=== PATIENT | female | born 1955 | race Caucasian/White ===

== ENCOUNTER 2018-06-07 10:06 | Outpatient (CLI) | payer OTHER ==
--- NOTE | 2018-06-08 09:23 | Mammography Report ---
Reason: SCREENING MAMMO Procedure Date: 06/07/2018 Accession Number: [id number] / [id number] Procedure: LOBITO - Screening Mammo w/Cristian CPT Code: FULL RESULT: EXAM: Screening Mammo w/Cristian DATE: 06/07/2018 10:47 AM CLINICAL HISTORY: Screening encounter. History of late childbearing. TECHNIQUE: Bilateral CC, laterally exaggerated CC, MLO views were obtained. COMPARISON: 06/22/2017 through 05/14/2014. FINDINGS: The breasts demonstrate scattered fibroglandular densities bilaterally. Biopsy clip is again seen in the right breast. No suspicious masses, clustered microcalcifications, or regions of architectural distortion are identified. IMPRESSION: Benign findings RECOMMENDATION: Routine annual screening unless otherwise clinically indicated. BIRADS CATEGORY 2: Benign findings STANDARD QUALIFYING STATEMENTS: 1. This examination was not reviewed with the aid of Computer-Aided Detection (CAD). 2. A negative or benign imaging report should not preclude biopsy if clinically suspicious findings are present. 3. Dense breasts may obscure an underlying neoplasm. 4. This examination was reviewed with the aid of 3D breast imaging (tomosynthesis).
== END 2018-06-07 10:07 | disposition home or self-care (01) ==
LOC: DI 10:06
DX: Z12.31 Encounter for screening mammogram for malignant neoplasm of breast (principal)
CPT/HCPCS: 77063; 77067

== ENCOUNTER 2018-10-04 16:12 | Outpatient (CLI) | payer OTHER ==
--- NOTE | 2018-10-05 08:33 | DEXA Report ---
Reason: OSTEOPOROSIS Procedure Date: 10/04/2018 Accession Number: [id number] / [id number] Procedure: DEX - Dexa Spine and/or Hip CPT Code: FULL RESULT: EXAM: Dexa Spine and/or Hip DATE: 10/04/2018 4:41 PM CLINICAL HISTORY: OSTEOPOROSIS TECHNIQUE: Dual energy x-ray absorptiometry (DXA) was performed on a [employer] System. Regions measured are the AP Spine, femoral neck, and if needed forearm. COMPARISON: None. In accordance with the International Society for Clinical Densitometry (ISCD) guidelines, data from previous exams may be reanalyzed using current recommendations and techniques. This is done to allow a more accurate basis for comparison with the current study. FINDINGS: The data for the lumbar spine is as follows: BMD (g/cm/cm) T-SCORE Z-SCORE REGION L1 0.856 -2.3 -0.1 L2 0.967 -1.9 0.3 L3 1.019 -1.5 0.7 L4 0.973 -1.9 0.3 TOTAL 0.961 -1.8 0.4 NOTE: All evaluable vertebrae are used for classification The data for the hip is as follows: BMD (g/cm/cm) T-SCORE Z-SCORE REGION Neck 0.671 -2.6 -0.8 TOTAL 0.690 -2.5 -0.9 NOTE: The femoral neck or total proximal femur, whichever is lowest, is used for classification. IMPRESSION: THE WHO CLASSIFICATION BASED ON THE INTERNATIONAL REFERENCE STANDARD IS OSTEOPOROSIS. THE FRACTURE RISK IS HIGH. RECOMMENDATION: Patients with diagnosis of osteoporosis or osteopenia should have regular bone mineral density assessment. For those eligible for Medicare, routine testing is allowed once every 2 years. Testing frequency can be increased for patients who have rapidly progressing disease or for those who are receiving medical therapy to restore bone mass. COMMENT: World Health Organization (WHO) definitions for osteoporosis and osteopenia: NORMAL BMD: T-score at -1.0 or higher, fracture risk is low OSTEOPENIA BMD: T-score between -1.0 and -2.5, fracture risk is increased. OSTEOPOROSIS BMD: T-score at -2.5 or lower, fracture risk is high. National Osteoporosis Foundation recommends: 1. Obtain adequate dietary calcium (at least 1200 mg per day) and vitamin D (400-800 international units per day). 2. Participate, as appropriate, in regular weightbearing and muscle-strengthening exercise. 3. Avoid tobacco use and reduce alcohol and caffeine intake. 4. For more detailed information see the website at www.NOF.org.
== END 2018-10-04 16:13 | disposition home or self-care (01) ==
LOC: DI 16:12
PROVIDERS: ATTEND Nurse Practitioner Family
DX: M81.0 Age-related osteoporosis without current pathological fracture (principal)
CPT/HCPCS: 77080

== ENCOUNTER 2018-10-07 08:49 | Outpatient (CLI) | payer OTHER ==
[2018-10-07 10:24] LABS: BASOPHILS % (AUTO) 0.6 %; EOSINOPHILS # (AUTO) 0.2 10^3/uL (0.0-0.7); EOSINOPHILS % (AUTO) 3.6 %; HGB - HEMOGLOBIN 13.4 g/dL (12.0-16.0); LYMPHOCYTES # (AUTO) 1.3 10^3/uL (1.5-3.5); LYMPHOCYTES % (AUTO) 30.7 %; MEAN CORPUSCULAR HEMOGLOBIN 29.4 pg (27.0-31.0); MEAN CORPUSCULAR HGB CONC 33.1 g/dL (32.0-36.0); MEAN PLATELET VOLUME 8.4 fL (7.9-10.8); MONOCYTES # (AUTO) 0.4 10^3/uL (0.0-1.0); MONOCYTES % (AUTO) 9.2 %; NEUTROPHILS # (AUTO) 2.4 10^3/uL (1.5-6.6); NEUTROPHILS % (AUTO) 55.9 %; PLT - PLATELET COUNT 224 10^3/uL (130-450); RED BLOOD COUNT 4.55 10^6/uL (4.20-5.40); RED CELL DISTRIBUTION WIDTH 13.8 % (12.0-15.0); WHITE BLOOD COUNT 4.2 x10^3/uL (4.8-10.8)
[2018-10-07 10:59] LABS: HB2 TOTAL 13.6 g/dL; HEMOGLOBIN A1C 0.46 g/dL; HEMOGLOBIN A1C % 5.2 % (4.6-6.2)
[2018-10-07 17:41] LABS: ALBUMIN 4.3 g/dL (3.2-5.5); ALBUMIN/GLOBULIN RATIO 1.9 (1.0-2.2); ALKALINE PHOSPHATASE 46 IU/L (42-121); ALT ALANINE AMINOTRANSFERASE 16 IU/L (10-60); AST ASPARTATE AMINOTRANSFERASE 22 IU/L (10-42); BILIRUBIN,TOTAL 0.8 mg/dL (0.2-1.0); BUN - BLOOD UREA NITROGEN 16 mg/dL (6-20); CALCIUM 9.4 mg/dL (8.5-10.3); CARBON DIOXIDE - CO2 28 mmol/L (21-32); CHLORIDE 105 mmol/L (101-111); CREATININE 0.8 mg/dL (0.4-1.0); GFR - MDRD 73 (>89); GLUCOSE 96 mg/dL (70-100); SODIUM 139 mmol/L (135-145); TOTAL PROTEIN 6.6 g/dL (6.7-8.2); VLDL CHOLESTEROL 14 mg/dL
[2018-10-07 17:42] LABS: CHOL/HDL RATIO 3.2 (<4.4); CHOLESTEROL 230 mg/dL; HDL CHOLESTEROL 72 mg/dL; LDL CHOLESTEROL,CALCULATED 144 mg/dL
== END 2018-10-07 08:50 | disposition home or self-care (01) ==
LOC: LAB.F 08:49
PROVIDERS: ATTEND Nurse Practitioner Family
DX: Z13.220 Encounter for screening for lipoid disorders (principal); M81.0 Age-related osteoporosis without current pathological fracture; Z13.1 Encounter for screening for diabetes mellitus; E03.9 Hypothyroidism, unspecified
CPT/HCPCS: 36415; 80053; 80061; 82306; 83036; 83721; 84443; 85025

== ENCOUNTER 2019-07-11 12:20 | Outpatient (CLI) | payer OTHER ==
--- NOTE | 2019-07-19 08:29 | Mammography Report ---
Reason: SCREENING MAMMO Procedure Date: 07/11/2019 Accession Number: [id number] / [id number] Procedure: LOBITO - Screening Mammo w/Cristian CPT Code: Final Report FULL RESULT: EXAM: Screening Mammo w/Cristian DATE: 07/11/2019 12:46 PM CLINICAL HISTORY: Screening encounter. History of late childbearing. History of benign right breast biopsy. TECHNIQUE: (B) - Bilateral CC and MLO views were obtained. COMPARISON: 06/07/2018 through 05/10/2013. PARENCHYMAL PATTERN: (D) - The breast(s) demonstrate(s) heterogeneously dense fibroglandular parenchyma. FINDINGS: Postbiopsy changes including clip placement in the right breast are redemonstrated without change. There are no suspicious masses, calcifications, or areas of distortion. IMPRESSION: Benign findings. BI-RADS category 2. RECOMMENDATION: (ANNUAL) - Recommend routine annual screening mammography. BI-RADS CATEGORY: (2) - Benign Findings. STANDARD QUALIFYING STATEMENTS: 1. This examination was not reviewed with the aid of Computer-Aided Detection (CAD). 2. A negative or benign imaging report should not preclude biopsy if clinically suspicious findings are present. 3. Dense breasts may obscure an underlying neoplasm. 4. This examination was reviewed with the aid of 3D breast imaging (tomosynthesis).
== END 2019-07-11 12:21 | disposition home or self-care (01) ==
LOC: DI 12:20
DX: Z12.31 Encounter for screening mammogram for malignant neoplasm of breast (principal)
CPT/HCPCS: 77063; 77067

== ENCOUNTER 2020-05-07 11:57 | Outpatient (CLI) | payer OTHER | END 2020-05-07 11:58 | disposition home or self-care (01) | LOC: COV 11:57 | PROVIDERS: ATTEND Family Medicine | DX: R05 Cough (principal); R09.81 Nasal congestion; J34.89 Other specified disorders of nose and nasal sinuses; Z20.828 Contact with and (suspected) exposure to other viral communicable diseases ==

== ENCOUNTER 2020-06-20 12:00 | Outpatient (CLI) | payer OTHER ==
[2020-06-20 15:04] LABS: BASOPHILS % (AUTO) 0.6 %; EOSINOPHILS # (AUTO) 0.1 10^3/uL (0.0-0.7); EOSINOPHILS % (AUTO) 1.9 %; HGB - HEMOGLOBIN 13.3 g/dL (12.0-16.0); LYMPHOCYTES # (AUTO) 1.5 10^3/uL (1.5-3.5); LYMPHOCYTES % (AUTO) 27.4 %; MEAN CORPUSCULAR HEMOGLOBIN 30.2 pg (27.0-31.0); MEAN CORPUSCULAR HGB CONC 32.7 g/dL (32.0-36.0); MEAN CORPUSCULAR VOLUME 92.3 fL (81.0-99.0); MEAN PLATELET VOLUME 11.2 fL (7.9-10.8); MONOCYTES # (AUTO) 0.5 10^3/uL (0.0-1.0); MONOCYTES % (AUTO) 9.8 %; NEUTROPHILS # (AUTO) 3.2 10^3/uL (1.5-6.6); NEUTROPHILS % (AUTO) 60.1 %; PLT - PLATELET COUNT 232 10^3/uL (130-450); RED BLOOD COUNT 4.41 10^6/uL (4.20-5.40); WHITE BLOOD COUNT 5.3 x10^3/uL (4.8-10.8)
[2020-06-20 15:43] LABS: ALBUMIN 4.1 g/dL (3.2-5.5); ALKALINE PHOSPHATASE 41 IU/L (42-121); ALT ALANINE AMINOTRANSFERASE 17 IU/L (10-60); AST ASPARTATE AMINOTRANSFERASE 17 IU/L (10-42); BILIRUBIN,TOTAL 0.3 mg/dL (0.2-1.0); BUN - BLOOD UREA NITROGEN 12 mg/dL (6-20); CALCIUM 9.5 mg/dL (8.5-10.3); CARBON DIOXIDE - CO2 26 mmol/L (21-32); CHLORIDE 100 mmol/L (101-111); CHOL/HDL RATIO 3.6 (<4.4); CHOLESTEROL 228 mg/dL; CREATININE 0.7 mg/dL (0.4-1.0); GLUCOSE 93 mg/dL (70-100); HDL CHOLESTEROL 63 mg/dL; LDL CHOLESTEROL,CALCULATED 108 mg/dL; LDL/HDL RATIO 1.7 (<4.4); TOTAL PROTEIN 6.2 g/dL (6.7-8.2); VLDL CHOLESTEROL 57 mg/dL
== END 2020-06-20 12:01 | disposition home or self-care (01) ==
LOC: LAB.S 12:00
PROVIDERS: ATTEND Registered Nurse
DX: E78.5 Hyperlipidemia, unspecified (principal); E03.9 Hypothyroidism, unspecified; F32.9 Major depressive disorder, single episode, unspecified; F41.9 Anxiety disorder, unspecified; Z79.890 Hormone replacement therapy
CPT/HCPCS: 36415; 80053; 80061; 83721; 84443; 85025

== ENCOUNTER 2020-07-24 15:29 | Outpatient (CLI) | payer OTHER ==
--- NOTE | 2020-07-25 10:15 | Mammography Report ---
BILATERAL DIGITAL SCREENING MAMMOGRAM 3D/2D: 07/24/2020 CLINICAL: Routine screening. Comparison is made to exams dated: 07/11/2019 mammogram, 06/07/2018 mammogram - [facility], and 06/22/2017 mammogram - [facility]. There are scattered fibroglandular elements in both breasts. There is a biopsy clip in the right breast. No significant masses, calcifications, or other findings are seen in either breast. There has been no significant interval change. IMPRESSION: NEGATIVE There is no mammographic evidence of malignancy. A 1 year screening mammogram is recommended. This exam was interpreted at Station ID: [id number]. NOTE: For mammograms, a report in lay terms will be sent to the patient. Approximately 15% of breast malignancies will not be visualized mammographically. In the management of a palpable breast mass, a negative mammogram must not discourage biopsy of a clinically suspicious lesion. Electronically Signed By: Ofelia santana/penrad:07/24/2020 17:26:18 ACR BI-RADS Category 1: Negative 3341F PARENCHYMAL PATTERN: (A) - The breast(s) demonstrate(s) scattered fibroglandular densities. BI-RADS CATEGORY: (1) - 1 RECOMMENDATION: (ANNUAL) - Recommend routine annual screening mammography. [id number] 1 year screening LATERALITY: (B)
== END 2020-07-24 15:30 | disposition home or self-care (01) ==
LOC: DI 15:29
DX: Z12.31 Encounter for screening mammogram for malignant neoplasm of breast (principal)

== ENCOUNTER 2020-11-22 11:00 | Outpatient (CLI) | payer MEDICARE, BC ==
--- NOTE | 2020-11-22 16:58 | DEXA Report ---
PROCEDURE: Dexa Spine and/or Hip INDICATIONS: OSTEOPOROSIS TECHNIQUE: Dual energy x-ray absorptiometry (DXA) was performed on a [employer] System. Regions measur ed are the AP Spine, femoral neck, and if needed forearm. COMPARISON: None. FINDINGS: Lumbar Spine: Bone Mineral Density 1.032 g/cm/cm,T score -1.2, compared to -1.8 Left Hip: Bone Mineral Density 0.710 g/cm/cm,T score -2.4, compared to -2.5 Left Femoral Neck: Bone Mineral Density 0.671 g/cm/cm, T score -2.6, compared to -2.6 (T score greater or equal to -1.0: NORMAL) (T score from -1.1 to -2.4: OSTEOPENIA) (T score less than or equal to -2.5 to: OSTEOPOROSIS) Impression: 1. Improved bone mineral density within the lumbar spine, now minimal osteopenia. 2. Persistent borderline/minimal osteoporosis in the left hip and femoral neck. Patients with diagnosis of osteoporosis or osteopenia should have regular bone mineral density assess ment. For those eligible for Medicare, routine testing is allowed once every 2 years. Testing frequ ency can be increased for patients who have rapidly progressing disease or for those who are receivin g medical therapy to restore bone mass. Reviewed by: Flaquita Lucero MD on 11/22/2020 4:56 PM PDT Approved by: Flaquita Lucero MD on 11/22/2020 4:56 PM PDT Station ID: [id number]
== END 2020-11-22 11:01 | disposition home or self-care (01) ==
LOC: DI 11:00
PROVIDERS: ATTEND Internal Medicine Endocrinology, Diabetes & Metabolism
DX: M81.0 Age-related osteoporosis without current pathological fracture (principal)

== ENCOUNTER 2021-10-20 13:03 | Emergency (ER) | payer MEDICARE, BC ==
[2021-10-20 13:20] VITALS: BP 126/56
--- NOTE | 2021-10-20 13:59 | ED Physician Documentation ---
PD HPI SKIN - Stated complaint Stated Complaint: RASH - Chief complaint Chief Complaint: Wound - History obtained from History obtained from: Patient - History of Present Illness Timing - onset: How many weeks ago (4) Timing - duration: Weeks (4) Timing - details: Gradual onset, Still present Location: [place] Quality / character: Itchy Improved by: Benadryl Contributing factors: Other (exposed to scabies) Similar symptoms before: Has not had sx before Recently seen: Not recently seen - Additional information Additional information: Previously well 65-year-old Almita Nicholas has developed an itchy rash about a month ago. She has a daughter who has been dealing with scabies for more than a year. She has come up with a number of concoctions for treatment of this and has shared these with her mother and the patient states that she has not had any relief of her symptoms with this. She brings in a sheet of paper demonstrating what she has taken and she brings in the medications with her. These medications were apparently compounded and purchased over the Internet. She also taken some ivermectin 2 doses. She is not had resolution of her symptoms. 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 - Present Medications Home Medications: Ambulatory Orders Medication Instructions Recorded Confirmed Aspirin [Strum Aspirin] 81 mg PO DAILY 01/24/21 05/08/21 Cetirizine [ZyrTEC] 10 mg PO DAILY 01/24/21 05/08/21 Cholecalciferol (Vitamin D3) 50 mcg PO DAILY 01/24/21 05/08/21 [Vitamin D3] Cyanocobalamin (Vitamin B-12) 1,000 mcg PO DAILY 01/24/21 05/08/21 [Vitamin B-12] Denosumab [Prolia] 60 mg INJ ONCE 01/24/21 05/08/21 Levothyroxine Sodium [Synthroid] 75 mcg PO DAILY 01/24/21 05/08/21 buPROPion HCL [Bupropion Xl] 300 mg PO DAILY 01/24/21 05/08/21 traZODone [Desyrel] 50 - 75 mg PO DAILY PM 01/24/21 05/08/21 Permethrin 5% Cream [Permethrin 30 gm TOP ONCE #60 gm 10/20/21 Cream] - Allergies Allergies/Adverse Reactions: Allergies Allergy/AdvReac Type Severity Reaction Status Date / Time alendronate sodium AdvReac Unknown Verified 10/20/21 13:20 [From Fosamax] - Social History Smoking Status: Never smoker PD ED PE NORMAL - Vitals Vital signs reviewed: Yes (normal ) - General General: Alert and oriented X 3, No acute distress, Well developed/nourished - HEENT HEENT: Atraumatic, PERRL, EOMI - Respiratory Respiratory: No respiratory distress - Derm Derm: Normal color, Warm and dry, Other (Raised erythematous rash over the anterior chest between the fingers along the neck consistent with scabies) Results - Vitals Vitals: Vital Signs - 24 hr 10/20/21 13:15 Temperature 36.5 C Heart Rate 99 Respiratory 14 Rate Blood Pressure 126/56 L O2 Saturation 90 L Oxygen O2 Source Room air PD MEDICAL DECISION MAKING - ED course Complexity details: considered differential, d/w patient ED course: 65-year-old female who has tried some Internet remedies for scabies has not had success. We will prescribe some permethrin. Departure - Departure Disposition: 01 Home, Self Care Clinical Impression: Scabies Condition: Stable Instructions: ED Scabies Follow-Up: Jennifer Cazares ARNP [Primary Care Provider] - [facility] [Provider Group] Prescriptions: Permethrin 5% Cream [Permethrin Cream] 30 gm TOP ONCE #60 gm Comments: Almita, today it looks like you have scabies and the medications you have been using have been ineffective. Today I have written a prescription for 5% permethrin cream to be applied neck down, leave it on overnight, shower in the morning and repeat this 1 week. Instructions regarding treatment of scabies are provided and your medication has been e-scribed to [facility] in [place]. If you do not have success with this follow up with [facility]. Discharge Date/Time: 10/20/21 14:26
--- OUTSIDE RECORDS SUMMARY | 2021-10-20 14:12 | EXTERNAL MEDICAL SUMMARY RPT | Continuity of Care Document ---
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 Encounters No information. Medications No information. 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
== END 2021-10-20 14:26 | disposition home or self-care (01) ==
LOC: ED 13:03
DX: B86 Scabies (principal)
CPT/HCPCS: 99282; 99283

== ENCOUNTER 2022-02-09 13:08 | Outpatient (CLI) | payer BC, MEDICARE ==
--- NOTE | 2022-02-11 12:50 | Mammography Report ---
BILATERAL DIGITAL SCREENING MAMMOGRAM 3D/2D WITH EXAGGERATED CC: 02/09/2022 CLINICAL: Routine screening. Family history of breast cancer. Comparison is made to exams dated: 07/24/2020 mammogram, 07/11/2019 mammogram, 06/07/2018 mammogram - [facility], and 06/22/2017 mammogram - [facility]. Both breasts are heterogeneously dense, which may obscure small masses (category c / 51-75% glandula r tissue). There is a new 0.7 cm irregular low density focal asymmetry with an obscured margin in the left breas t at 11 o'clock anterior depth. There is possible architectural distortion associated with the focal asymmetry. No other significant masses, calcifications, or other findings are seen in either breast. IMPRESSION: INCOMPLETE: NEEDS ADDITIONAL IMAGING EVALUATION The new 0.7 cm irregular low density focal asymmetry in the left breast is indeterminate. Additional views with possible ultrasound are recommended. Based on the Tyrer Cuzick model (a risk assessment model) the patients lifetime risk is 10.8% and he r 10 year risk is 5.4%. According to the ACR, ACS, and NCCN guidelines, an annual breast MRI exam timbo ng with mammogram is recommended if the patients lifetime risk is 20% or greater. This exam was interpreted at Station ID: [id number]. NOTE: For mammograms, a report in lay terms will be sent to the patient. Approximately 15% of breast malignancies will not be visualized mammographically. In the management of a palpable breast mass, a negative mammogram must not discourage biopsy of a clinically suspicious lesion. Electronically Signed By: Lucien Renteria M.D. aty/:02/11/2022 09:05:38 ACR BI-RADS Category 0: Incomplete 3340F PARENCHYMAL PATTERN: (D) - The breast(s) demonstrate(s) heterogeneously dense fibroglandular parenchy ma. BI-RADS CATEGORY: (0) - 0 Mammo and [place] [id number] Immediate follow-up LATERALITY: (L)
== END 2022-02-09 13:09 | disposition home or self-care (01) ==
LOC: DI.S 13:08
PROVIDERS: ATTEND Registered Nurse
DX: Z12.31 Encounter for screening mammogram for malignant neoplasm of breast (principal); Z80.3 Family history of malignant neoplasm of breast; R92.8 Other abnormal and inconclusive findings on diagnostic imaging of breast

== ENCOUNTER 2022-02-26 09:14 | Outpatient (CLI) | payer MEDICARE ==
--- NOTE | 2022-02-27 11:29 | Ultrasound Report ---
LIMITED ULTRASOUND OF LEFT BREAST: 02/26/2022 CLINICAL: Patient returns today to evaluate an architectural distortion in the left breast. Patient r eturns today to evaluate a focal asymmetry in the left breast. No prior exams were available for comparison. Color flow ultrasound of the left breast 11 o'clock region was performed. Doran scale images of the real-time examination were reviewed. No significant abnormalities were seen sonographically in the left breast. IMPRESSION: NEGATIVE There is no sonographic evidence of malignancy. There is no abnormality seen in the left breast to correspond with the mammography finding at 11 o'cl ock which likely represents normal fibroglandular tissue. Return to annual mammogram screening schedule is recommended. This exam was interpreted at Station ID: [id number]. Electronically Signed By: Tye Aldana M.D. lc/:02/26/2022 10:42:00 Ultrasound BI-RADS: 1 Negative BI-RADS CATEGORY: (1) - 1 Mammogram [id number] return to screening LATERALITY: (B)
--- NOTE | 2022-02-27 11:29 | Mammography Report ---
UNILATERAL LEFT DIGITAL DIAGNOSTIC MAMMOGRAM 3D/2D: 02/26/2022 CLINICAL: Patient returns today to evaluate a focal asymmetry in the left breast. Comparison is made to exams dated: 02/09/2022 mammogram, 07/11/2019 mammogram, 07/24/2020 mammogram, 06/07/2018 mammogram - [facility], and 06/22/2017 mammogram - [facility]. The left breast is heterogeneously dense, which may obscure small masses (category c / 51-75% glandu lar tissue). There is a focal asymmetry in the left breast at 11 o'clock anterior depth, less prominent on spot co mpression views. No other significant masses or calcifications are seen in the breast. IMPRESSION: INCOMPLETE: NEEDS ADDITIONAL IMAGING EVALUATION The focal asymmetry in the left breast is indeterminate. Additional views with possible ultrasound a re recommended. This appears less prominent on spot compression views. Based on the Tyrer Cuzick model (a risk assessment model) the patients lifetime risk is 10.8% and he r 10 year risk is 5.4%. According to the ACR, ACS, and NCCN guidelines, an annual breast MRI exam timbo ng with mammogram is recommended if the patients lifetime risk is 20% or greater. This exam was interpreted at Station ID: [id number]. NOTE: For mammograms, a report in lay terms will be sent to the patient. Approximately 15% of breast malignancies will not be visualized mammographically. In the management of a palpable breast mass, a negative mammogram must not discourage biopsy of a clinically suspicious lesion. Electronically Signed By: Tye Aldana M.D. lc/:02/26/2022 10:40:31 ACR BI-RADS Category 0: Incomplete 3340F PARENCHYMAL PATTERN: (D) - The breast(s) demonstrate(s) heterogeneously dense fibroglandular parenchy ma. BI-RADS CATEGORY: (0) - 0 Ultrasound [id number] Immediate follow-up LATERALITY: (B)
== END 2022-02-26 09:15 | disposition home or self-care (01) ==
LOC: DI 09:14
PROVIDERS: ATTEND Family Medicine
DX: R92.8 Other abnormal and inconclusive findings on diagnostic imaging of breast (principal)

== ENCOUNTER 2022-06-22 16:59 | Outpatient (CLI) | payer MEDICARE ==
--- NOTE | 2022-06-22 18:20 | XRAY Report ---
PROCEDURE: Lumbar Spine 2 View INDICATIONS: LUMBAR RADICULOPATHY TECHNIQUE: 3 views of the lumbar spine were acquired. COMPARISON: 12/29/2019 FINDINGS: Bones: 5 [id number] vertebrae are present. Moderate S-shaped thoracolumbar scoliosis with the apex at the L2 level. There is mild lateral rightward subluxation L3 on 4 and asymmetric disc height loss L4-5. Probable retrolisthesis L2-3. This is not well seen due to scoliosis. Chronic vertebral body height loss of L1, stable compared to the prior study. No new vertebral body f ractures.. No suspicious bony lesions. Soft tissues: Overlying bowel gas pattern is normal. No suspicious soft tissue calcifications. IMPRESSION: 1. No significant change to moderate thoracolumbar scoliosis and mild L2-3 retrolisthesis. 2. No progression of L1 compression fracture. Reviewed by: Ofeila Starkey MD on 06/22/2022 5:19 PM AKST Approved by: Ofelia Starkey MD on 06/22/2022 5:19 PM AK Station ID: [id number]
== END 2022-06-22 17:00 | disposition home or self-care (01) ==
LOC: DI.S 16:59
PROVIDERS: ATTEND Physician Assistant
DX: M43.16 Spondylolisthesis, lumbar region (principal); M54.16 Radiculopathy, lumbar region

== ENCOUNTER 2022-12-15 08:56 | Outpatient (CLI) | payer MEDICARE ==
[2022-12-15 15:01] LABS: BASOPHILS % (AUTO) 0.4 %; EOSINOPHILS # (AUTO) 0.1 10^3/uL (0.0-0.7); EOSINOPHILS % (AUTO) 1.3 %; HCT - HEMATOCRIT 41.7 % (37.0-47.0); HGB - HEMOGLOBIN 13.6 g/dL (12.0-16.0); LYMPHOCYTES # (AUTO) 1.2 10^3/uL (1.5-3.5); MEAN CORPUSCULAR HEMOGLOBIN 30.1 pg (27.0-31.0); MEAN CORPUSCULAR HGB CONC 32.6 g/dL (32.0-36.0); MEAN CORPUSCULAR VOLUME 92.3 fL (81.0-99.0); MEAN PLATELET VOLUME 10.3 fL (7.9-10.8); MONOCYTES # (AUTO) 0.4 10^3/uL (0.0-1.0); MONOCYTES % (AUTO) 8.5 %; NEUTROPHILS % (AUTO) 63.8 %; PLT - PLATELET COUNT 282 10^3/uL (130-450); RED BLOOD COUNT 4.52 10^6/uL (4.20-5.40); RED CELL DISTRIBUTION WIDTH 12.7 % (12.0-15.0); WHITE BLOOD COUNT 4.7 x10^3/uL (4.8-10.8)
[2022-12-15 15:24] LABS: THYROID STIMULATING HORMONE 1.72 uIU/mL (0.34-5.60)
[2022-12-15 15:53] LABS: ALBUMIN 4.2 g/dL (3.2-5.5); ALBUMIN/GLOBULIN RATIO 1.6 (1.0-2.2); ALKALINE PHOSPHATASE 44 IU/L (42-121); ALT ALANINE AMINOTRANSFERASE 22 IU/L (10-60); AST ASPARTATE AMINOTRANSFERASE 23 IU/L (10-42); BILIRUBIN,TOTAL 0.5 mg/dL (0.2-1.0); BUN - BLOOD UREA NITROGEN 12 mg/dL (6-20); CALCIUM 9.4 mg/dL (8.5-10.3); CARBON DIOXIDE - CO2 29 mmol/L (21-32); CHLORIDE 106 mmol/L (101-111); CHOL/HDL RATIO 2.8 (<4.4); CHOLESTEROL 220 mg/dL; CREATININE 0.7 mg/dL (0.4-1.0); GFR - MDRD 83 (>89); GLUCOSE 103 mg/dL (70-100); HDL CHOLESTEROL 78 mg/dL; LDL CHOLESTEROL,CALCULATED 122 mg/dL; LDL/HDL RATIO 1.6 (<4.4); POTASSIUM 4.2 mmol/L (3.5-5.0); SODIUM 139 mmol/L (135-145); TOTAL PROTEIN 6.9 g/dL (6.7-8.2); TRIGLYCERIDES 99 mg/dL; VLDL CHOLESTEROL 20 mg/dL
== END 2022-12-15 08:57 | disposition home or self-care (01) ==
LOC: LAB.S 08:56
PROVIDERS: ATTEND Internal Medicine Endocrinology, Diabetes & Metabolism
DX: M81.0 Age-related osteoporosis without current pathological fracture (principal); Z79.899 Other long term (current) drug therapy; E78.5 Hyperlipidemia, unspecified; E03.9 Hypothyroidism, unspecified; E78.1 Pure hyperglyceridemia
CPT/HCPCS: 36415; 80053; 80061; 82310; 83721; 84443; 85025

== ENCOUNTER 2023-02-10 13:31 | Outpatient (CLI) | payer MEDICARE ==
--- NOTE | 2023-02-10 15:59 | Ultrasound Report ---
PROCEDURE: Pelvic Limited or F/U INDICATIONS: RIGHT INGUINAL PAIN, right lower quadrant pain for months TECHNIQUE: Real-time transabdominal scanning was performed of the pelvic organs, with image documentation. COMPARISON: None. Findings and impression: No hernia, fluid collection, or mass in the area of interest. Multiple bowel loops are visualized, ot herwise not well evaluated on ultrasound. Reviewed by: Tye Aldana MD on 02/10/2023 3:58 PM PDT Approved by: Tye Aldana MD on 02/10/2023 3:58 PM PDT Station ID: [id number]
== END 2023-02-10 13:32 | disposition home or self-care (01) ==
LOC: DI 13:31
PROVIDERS: ATTEND Registered Nurse
DX: R10.31 Right lower quadrant pain (principal)

== ENCOUNTER 2023-03-03 12:57 | Outpatient (CLI) | payer MEDICARE ==
--- NOTE | 2023-03-04 11:18 | Mammography Report ---
BILATERAL DIGITAL SCREENING MAMMOGRAM 3D/2D: 03/03/2023 Comparison is made to exams dated: 07/11/2019 mammogram, 07/24/2020 mammogram, 02/09/2022 mammogram, an d 02/26/2022 mammogram - [facility]. Both breasts are heterogeneously dense, which may obscure small masses (category c / 51-75% glandular tissue). No significant masses, calcifications, or other findings are seen in either breast. There has been no significant interval change. IMPRESSION: NEGATIVE There is no mammographic evidence of malignancy. A 1 year screening mammogram is recommended. Based on the Tyrer Cuzick model (a risk assessment model) the patients lifetime risk is 10.2% and he r 10 year risk is 5.4%. According to the ACR, ACS, and NCCN guidelines, an annual breast MRI exam timbo ng with mammogram is recommended if the patients lifetime risk is 20% or greater. This exam was interpreted at Station ID: [id number]. NOTE: For mammograms, a report in lay terms will be sent to the patient. Approximately 15% of breast malignancies will not be visualized mammographically. In the management of a palpable breast mass, a negative mammogram must not discourage biopsy of a clinically suspicious lesion. Electronically Signed By: Raj lacey/stephen:03/03/2023 17:41:55 letter sent: No_Letter ACR BI-RADS Category 1: Negative 3341F PARENCHYMAL PATTERN: (D) - The breast(s) demonstrate(s) heterogeneously dense fibroglandular geraldo angel. BI-RADS CATEGORY: (1) - 1 Mammogram [id number] 1 year screening LATERALITY: (B)
== END 2023-03-03 12:58 | disposition home or self-care (01) ==
LOC: DI.S 12:57
PROVIDERS: ATTEND Registered Nurse
DX: Z12.31 Encounter for screening mammogram for malignant neoplasm of breast (principal)

== ENCOUNTER 2023-04-20 10:24 | Outpatient (CLI) | payer MEDICARE ==
--- NOTE | 2023-04-20 12:06 | MRI Report ---
PROCEDURE: LUMBAR SPINE WO INDICATIONS: LUMBAR DISC HERNIATION. Back pain. TECHNIQUE: Noncontrast sagittal T1 spin echo and T2 fast echo, sagittal STIR, axial T1 and T2 fast spin echo thr ough the lumbar spine. In cases with scoliosis, additional coronal T2 fast spin echo may be performe d. COMPARISON: Lumbar spine plain films dated 03/22/2023, lumbar spine MRI dated 06/26/2022. FINDINGS: Image quality: Excellent. Alignment and Curvature: Moderate rotatory dextroscoliosis of the thoracolumbar spine centered at L1- L2. Trace anterolisthesis of L3 on L4. Bone Marrow: Marrow is of normal overall signal. No acute vertebral body compression fractures. Spinal Cord: Conus medullaris terminates at the L1-L2 level. Visualized cord demonstrates normal si gnal and size. Paraspinous Soft Tissues: No paravertebral masses. T12-L1: Unchanged. Chronic disc height loss. Minimal disc bulge. No canal stenosis or foraminal sten osis. L1-L2: Unchanged. Chronic disc height loss. Disc bulge. No significant canal stenosis. Left facet hypertrophy contributes to mild to moderate left foraminal narrowing. L2-L3: Unchanged. Chronic disc height loss. Diffuse disc bulge. Facet and ligament hypertrophy. No significant central canal stenosis. Moderate left foraminal narrowing with mild flattening deformity on the exiting left L2 nerve root. L3-L4: No significant change. Chronic disc height loss. Trace anterolisthesis of L3 on L4. Disc bul ge. Facet hypertrophy. No significant canal stenosis or foraminal stenosis. L4-L5: Interval progression. Mild chronic disc height loss. Diffuse disc bulge. Bilateral facet hyp ertrophy, right greater than left. No canal stenosis. Worsening of right foraminal narrowing, seconda ry to disc bulge plus facet arthropathy. It is severe with a degree of right foraminal L4 nerve root impingement. No significant left foraminal narrowing. L5-S1: Minimal disc bulge. Mild facet hypertrophy. No canal stenosis or foraminal stenosis. IMPRESSION: 1. There is underlying moderate rotatory dextrocurvature centered at L1-L2, as well as multilevel fac et arthropathy. 2. No central canal stenosis. 3. Multilevel foraminal narrowing as described above, including moderate left foraminal narrowing at L2-L3 and severe right foraminal narrowing at L4-L5. Right foraminal narrowing at L4-L5 is progressiv e. Reviewed by: Gal Agudelo MD on 04/20/2023 12:05 PM PST Approved by: Gal Agudelo MD on 04/20/2023 12:05 PM PST Station ID: [id number]
== END 2023-04-20 10:25 | disposition home or self-care (01) ==
LOC: DI 10:24
PROVIDERS: ATTEND Orthopaedic Surgery
DX: M51.36 Other intervertebral disc degeneration, lumbar region (principal); M48.061 Spinal stenosis, lumbar region without neurogenic claudication; M47.26 Other spondylosis with radiculopathy, lumbar region; M51.37 Other intervertebral disc degeneration, lumbosacral region; M47.817 Spondylosis without myelopathy or radiculopathy, lumbosacral region

== ENCOUNTER 2024-02-25 10:16 | Outpatient (CLI) | payer MEDICARE ==
[2024-02-25 14:50] LABS: BASOPHILS % (AUTO) 0.6 %; EOSINOPHILS % (AUTO) 0.9 %; HCT - HEMATOCRIT 40.4 % (37.0-47.0); HGB - HEMOGLOBIN 13.4 g/dL (12.0-16.0); LYMPHOCYTES # (AUTO) 1.4 10^3/uL (1.5-3.5); LYMPHOCYTES % (AUTO) 29.4 %; MEAN CORPUSCULAR HEMOGLOBIN 30.2 pg (27.0-31.0); MEAN CORPUSCULAR HGB CONC 33.2 g/dL (32.0-36.0); MEAN PLATELET VOLUME 10.5 fL (7.9-10.8); MONOCYTES # (AUTO) 0.4 10^3/uL (0.0-1.0); MONOCYTES % (AUTO) 9.1 %; NEUTROPHILS # (AUTO) 2.8 10^3/uL (1.5-6.6); NEUTROPHILS % (AUTO) 59.8 %; PLT - PLATELET COUNT 237 10^3/uL (130-450); RED BLOOD COUNT 4.44 10^6/uL (4.20-5.40); RED CELL DISTRIBUTION WIDTH 13.2 % (12.0-15.0); WHITE BLOOD COUNT 4.6 x10^3/uL (4.8-10.8)
[2024-02-25 15:49] LABS: ALBUMIN 4.2 g/dL (3.2-5.5); ALKALINE PHOSPHATASE 41 IU/L (42-121); ALT ALANINE AMINOTRANSFERASE 14 IU/L (10-60); AST ASPARTATE AMINOTRANSFERASE 16 IU/L (10-42); BILIRUBIN,TOTAL 0.3 mg/dL (0.2-1.0); BUN - BLOOD UREA NITROGEN 9 mg/dL (6-20); CALCIUM 9.1 mg/dL (8.5-10.3); CARBON DIOXIDE - CO2 31 mmol/L (21-32); CHLORIDE 105 mmol/L (101-111); CHOL/HDL RATIO 3.1 (<4.4); CHOLESTEROL 207 mg/dL; CREATININE 0.7 mg/dL (0.6-1.3); GFR - MDRD 83 (>89); GLUCOSE 93 mg/dL (74-104); HDL CHOLESTEROL 66 mg/dL; LDL CHOLESTEROL,CALCULATED 118 mg/dL; LDL/HDL RATIO 1.8 (<4.4); POTASSIUM 4.2 mmol/L (3.5-4.5); SODIUM 139 mmol/L (135-145); TOTAL PROTEIN 6.3 g/dL (6.4-8.9); TRIGLYCERIDES 115 mg/dL; VLDL CHOLESTEROL 23 mg/dL
== END 2024-02-25 10:17 | disposition home or self-care (01) ==
LOC: LAB.S 10:16
PROVIDERS: ATTEND Registered Nurse
DX: I10 Essential (primary) hypertension (principal); E78.1 Pure hyperglyceridemia; E78.5 Hyperlipidemia, unspecified
CPT/HCPCS: 36415; 80053; 80061; 83721; 85025